=== PATIENT | female | born 1955 | race Caucasian/White ===

== ENCOUNTER → 2018-09-03 | Outpatient (CLI) | payer OTHER ==
[~2018-09-03] MED LIST: ACET-1600 PO; ASPI1TAB31 PO; AUGMENTIN PO; AZIT500T2 PO; CELE200C PO; CETI-158 PO; CICL12.52 INH; CITA20TA9 PO; DIAZ5TAB4 PO; FLUT9.9S NAS; GABA600T PO; MORP-52 PO; OXYC5CAP2 PO; PRED50TA PO; TRAM50TA2 PO; VIT1CAPS42 PO
[2018-09-03 15:37] LABS: BASOPHILS # (AUTO) 0.03 x10^3/uL (0-0.1); BASOPHILS % (AUTO) 1 % (0-1); EOSINOPHILS # (AUTO) 0.06 x10^3/uL (0-0.4); EOSINOPHILS % (AUTO) 2 % (1-7); LYMPHOCYTES # (AUTO) 0.82 x10^3/uL (1-3.4); LYMPHOCYTES % (AUTO) 19 % (22-44); MD NO; MEAN CORPUSCULAR HEMOGLOBIN 31.6 pg (27.0-34.8); MEAN CORPUSCULAR HGB CONC 33.8 g/dL (32.4-35.8); MEAN CORPUSCULAR VOLUME 93.6 fL (80-100); MEAN PLATELET VOLUME 8.6 fL (7.4-10.4); MONOCYTES # (AUTO) 0.48 x10^3/uL (0.2-0.8); MONOCYTES % (AUTO) 11 % (2-9); NEUTROPHILS # (AUTO) 2.99 x10^3/uL (1.8-6.8); NEUTROPHILS % (AUTO) 68 % (42-75); PLATELET COUNT 182 x10^3/uL (130-400); RED BLOOD COUNT 4.75 x10^6/uL (3.82-5.3); RED CELL DISTRIBUTION WIDTH 15.2 % (9.6-15.2)
[2018-09-03 15:49] LABS: ANION GAP 5 mmol/L (5-15); CALCIUM 8.6 mg/dL (8.5-10.1); CHLORIDE 112 mmol/L (98-107); CREATININE 1.04 mg/dL (0.55-1.02)
== END | disposition home or self-care (01) ==
LOC: STAR 14:13
PROVIDERS: ATTEND Orthopaedic Surgery
DX: Z01.818 Encounter for other preprocedural examination (principal); M17.12 Unilateral primary osteoarthritis, left knee
CPT/HCPCS: 36415; 80048; 85025; 87081; 93005

== ENCOUNTER 2018-09-10 06:18 | Inpatient (IN) | payer OTHER ==
[~2018-09-10] VITALS: Ht 162.6 cm; Wt 91.4 kg
[2018-09-10] MEDS ORDERED: LACTATED RINGERS 1,000 ML IV SCH (06:58)
[2018-09-10] MEDS ORDERED: LIDOCAINE-MPF 1%, 2ML INFIL ONE (07:00)
[2018-09-10] MEDS ORDERED: DIAZ5TAB PO (07:04)
[2018-09-10] MEDS ORDERED: FENTANYL PF 250 MCG/5ML ONE (07:58)
[2018-09-10] MEDS ORDERED: MIDAZOLAM 1 MG/ML, 2ML ONE (08:19)
[2018-09-10] MEDS ORDERED: KETOROLAC 60 MG/2 ML ONE (08:32)
[2018-09-10] MEDS ORDERED: EPINEPHRINE 1 MG/ML, 1ML ONE ×2 (08:33→08:53)
[2018-09-10] MEDS ORDERED: ROPIvacaine/PF 0.2%, 20 ML ONE (08:33)
[2018-09-10] MEDS ORDERED: VANCOMYCIN 1,000 MG ONE (08:33)
[2018-09-10] MEDS ORDERED: SCOPOLAMINE PATCH, 1.5MG PATCH.TD72 TD STA (08:36)
[2018-09-10] MEDS ORDERED: FAMOTIDINE 20 MG TABLET PO STA (08:36)
[2018-09-10] MEDS ORDERED: ACETAMINOPHEN 500 MG TABLET PO STA (08:36)
[2018-09-10] MEDS ORDERED: GABAPENTIN 300 MG CAPSULE PO STA (08:36)
[2018-09-10] MEDS ORDERED: TRANEXAMIC ACID 100 MG/ML, 10ML ONE (08:52)
[2018-09-10] MEDS ORDERED: PROPOFOL 50 ML ONE (08:57)
[2018-09-10] MEDS ORDERED: DEXAMETHASONE 4 MG/ML, 1ML ONE ×2 (09:04→09:29)
[2018-09-10] MEDS ORDERED: CEFAZOLIN 1,000 MG ONE ×2 (09:04→09:29)
[2018-09-10] MEDS ORDERED: ONDANSETRON 2MG/ML, 2ML ONE ×2 (09:04→09:29)
[2018-09-10] MEDS ORDERED: SUCCINYLCHOLINE 20 MG/ML, 10ML ONE (09:29)
[2018-09-10] MEDS ORDERED: KETOROLAC 30 MG/1 ML ONE (09:29)
[2018-09-10] MEDS ORDERED: LIDOCAINE PF 2%, 5ML ONE (09:29)
[2018-09-10] MEDS ORDERED: PROMETHAZINE 25 MG/ML, 1ML IV PRN (10:00)
[2018-09-10] MEDS ORDERED: HYDROmorphone 2 MG/ML, 1ML IVPush PRN (10:00)
[2018-09-10] MEDS ORDERED: HYDROcodone/APAP 7.5-325MG/15ML UDC PO PRN (10:00)
[2018-09-10] MEDS ORDERED: ONDANSETRON ODT 8 MG PO PRN (10:00)
[2018-09-10] MEDS ORDERED: ONDANSETRON 2MG/ML, 2ML IV PRN ×2 (10:00→10:30)
[2018-09-10] MEDS ORDERED: FENTANYL PF 100 MCG/2ML IV PRN (10:00)
[2018-09-10] MEDS ORDERED: DIAZEPAM 5 MG/ML, 2ML IVPush PRN (10:00)
[2018-09-10] MEDS ORDERED: DIPHENHYDRAMINE 50 MG CAPSULE PO PRN (10:30)
[2018-09-10] MEDS ORDERED: BISACODYL 10 MG SUPP PR PRN (10:30)
[2018-09-10] MEDS ORDERED: ZOLPIDEM 5MG TABLET PO PRN (10:30)
[2018-09-10] MEDS ORDERED: MAGNESIUM HYDROXIDE 8%, 30ML UDC PO PRN (10:30)
[2018-09-10] MEDS ORDERED: PROMETHAZINE 12.5 MG SUPP PR PRN (10:30)
[2018-09-10] MEDS ORDERED: ALUMINUM/MAG/SIMETHICONE 30 ML UDC PO PRN (10:30)
[2018-09-10] MEDS ORDERED: ONDANSETRON 4 MG TABLET PO PRN (10:30)
[2018-09-10] MEDS ORDERED: SENNA/DOCUSATE TABLET PO PRN (10:30)
[2018-09-10] MEDS ORDERED: DIAZEPAM 5 MG TABLET PO PRN (10:30)
[2018-09-10] MEDS ORDERED: PROMETHAZINE 25 MG/ML, 1ML IM PRN (10:30)
[2018-09-10] MEDS ORDERED: ACETAMINOPHEN 650 MG/20.3 ML UDC PO SCH (10:30)
[2018-09-10] MEDS ORDERED: HYDROmorphone 1 MG/ML, 1ML IV PRN (10:30)
[2018-09-10] MEDS ORDERED: TRANEXAMIC ACID 1,000 MG in SODIUM CHLORIDE 0.9% 100 ML IVPB ONE (10:50)
[2018-09-10] MEDS ORDERED: MEPERIDINE/PF 25MG/ML,1ML ONE (11:08)
[2018-09-10] MEDS ORDERED: MEPERIDINE/PF 25MG/0.5ML IVPush PRN (11:30)
[2018-09-10 12:24] VITALS: BP 102/64
[2018-09-10] MEDS: TAMSULOSIN 0.4 MG CAP.ER.24H PO SCH (14:41)
[2018-09-10] MEDS: OXYcodone IR 5MG TABLET PO PRN ×2 (14:41→18:48)
[2018-09-10] MEDS: D5%-0.45% NACL 1,000 ML IV SCH ×2 (14:42→21:00)
[2018-09-10] MEDS: CEFAZOLIN PMX 2GM/50ML 50 ML IVPB SCH (15:58)
[2018-09-10] MEDS: ACETAMINOPHEN 500 MG TABLET PO SCH ×2 (15:59→21:48)
[2018-09-10] MEDS: KETOROLAC 30 MG/1 ML IV SCH ×2 (15:59→21:48)
[2018-09-10] MEDS ORDERED: ASPIRIN 81 MG TABLET EC PO SCH (18:00)
[2018-09-10 19:40] VITALS: BP 95/56
[2018-09-10] MEDS: DOCUSATE 100 MG CAPSULE PO SCH (21:48)
[2018-09-10 23:30] VITALS: BP 95/58
[2018-09-11] MEDS: OXYcodone IR 5MG TABLET PO PRN ×4 (00:07→12:18)
[2018-09-11] MEDS: CEFAZOLIN PMX 2GM/50ML 50 ML IVPB SCH (00:07)
[2018-09-11 02:11] VITALS: BP 143/84
[2018-09-11] MEDS: ACETAMINOPHEN 500 MG TABLET PO SCH ×2 (03:55→09:50)
[2018-09-11] MEDS: D5%-0.45% NACL 1,000 ML IV SCH (03:55)
[2018-09-11] MEDS: KETOROLAC 30 MG/1 ML IV SCH ×2 (03:55→09:50)
[2018-09-11 04:00] VITALS: BP 96/57
[2018-09-11] MEDS ORDERED: DEXAMETHASONE 10 MG in SODIUM CHLORIDE 0.9% 50 ML IV ONE (06:00)
[2018-09-11] MEDS ORDERED: DEXAMETHASONE 4 MG/ML, 1ML IVPush SCH (06:00)
[2018-09-11] MEDS ORDERED: RIVAROXABAN 10 MG TABLET PO SCH (06:00)
[2018-09-11 08:02] VITALS: BP 106/67
[2018-09-11] MEDS: DOCUSATE 100 MG CAPSULE PO SCH (08:14)
[2018-09-11] MEDS: TAMSULOSIN 0.4 MG CAP.ER.24H PO SCH (08:15)
[2018-09-11] MEDS ORDERED: CITALOPRAM 20 MG TABLET PO SCH (09:00)
[2018-09-11] MEDS ORDERED: MULTIVITAMINS/MINERALS TABLET PO SCH (09:00)
[2018-09-11] MEDS ORDERED: OXYC5TAB2 PO (13:07)
[2018-09-11 14:41] VITALS: BP 101/72
== END 2018-09-11 14:58 | disposition home or self-care (01) | DRG 470 ==
LOC: OUT 06:18 → ORIP 10:30 → CSU 11:31 → 4NOR 11:33 → DCLOUNGE 09-11 14:44
PROVIDERS: ADMIT Orthopaedic Surgery; ATTEND Orthopaedic Surgery
PROC: 3E0T3BZ Introduction of Anesthetic Agent into Peripheral Nerves and Plexi, Percutaneous Approach (ICD-10-PCS; 2018-09-10)
PROC: 0SRD069 Replacement of Left Knee Joint with Oxidized Zirconium on Polyethylene Synthetic Substitute, Cemented, Open Approach (ICD-10-PCS; principal; 2018-09-10 09:15)
DX: M17.12 Unilateral primary osteoarthritis, left knee (principal); F41.9 Anxiety disorder, unspecified; Z91.09 Other allergy status, other than to drugs and biological substances
CPT/HCPCS: 36415; 85014; 85018; 90656; C1713; G0378; J0171; J0690; J1100; J1885; J2175; J2250; J2405; J2704; J2795; J3010; J3370; C1776; J0330; J7120